=== PATIENT | female | born 1995 | race Caucasian/White ===

== ENCOUNTER 2019-06-22 16:11 | Emergency (ER) | payer OTHER ==
[~2019-06-22] VITALS: Ht 165.1 cm; Wt 82.6 kg
[~2019-06-22 16:11] MED LIST: CEFU500T46 PO; NORG1TAB6 PO; PHEN37.53 PO
[2019-06-22] MEDS ORDERED: LIDO:MAALOX 1:1 20 ML SINGLE DOSE. PO ONE (17:30)
[2019-06-22 17:57] LABS: BASO # 0.1 x10^3/uL (0.0-0.2); BASO % 1 % (0-3); EOS # 0.1 x10^3/uL (0.0-0.7); EOS % 1 % (0-3); HEMATOCRIT 42.1 % (36.0-47.0); LYMPH # 2.7 x10^3/uL (1.0-4.8); LYMPH % 27 % (24-48); MEAN CORPUSCULAR HEMOGLOBIN 30 pg (25-35); MEAN CORPUSCULAR HGB CONC 33 g/dL (31-37); MEAN CORPUSCULAR VOLUME 90 fL (79-100); MONO # 0.6 x10^3/uL (0.0-1.1); MONO % 6 % (0-9); NEUT # 6.6 x10^3uL (1.8-7.7); NEUT % 65 % (31-73); PLATELET COUNT 318 x10^3/uL (140-400); RED BLOOD COUNT 4.69 x10^6/uL (3.50-5.40); RED CELL DISTRIBUTION WIDTH 12.6 % (11.5-14.5); WHITE BLOOD COUNT 10.1 x10^3/uL (4.0-11.0)
[2019-06-22 18:00] LABS: CALCIUM 9.3 mg/dL (8.5-10.1); CREATININE 0.7 mg/dL (0.6-1.0); GFR 102.8; POTASSIUM 4.1 mmol/L (3.5-5.1)
[2019-06-22 18:04] LABS: BACTERIA,URINE 0 /HPF (0-FEW); BILIRUBIN,URINE NEG (NEG); CLARITY,URINE HAZY; COLOR,URINE STRAW; GLUCOSE,URINE NEG (NEG); NITRITE,URINE NEG (NEG); RBC,URINE 0 /HPF (0-2); SQUAMOUS EPITHELIAL CELL,UR FEW /LPF; UROBILINOGEN,URINE 0.2 mg/dL (0.2 mg/dL); WBC,URINE 0 /HPF (0-4)
[2019-06-22 18:06] LABS: ALBUMIN 4.2 g/dL (3.4-5.0); ALBUMIN/GLOBULIN RATIO 1.2 (1.0-1.7); TOTAL BILIRUBIN 0.4 mg/dL (0.2-1.0); TOTAL PROTEIN 7.7 g/dL (6.4-8.2)
[2019-06-22 18:28] VITALS: BP 121/69
--- NOTE | 2019-06-22 18:30 | PHYS DOC ---
Past History Past Medical History: No Pertinent History Past Surgical History: Appendectomy Alcohol Use: Occasionally Drug Use: None Adult General Chief Complaint Chief Complaint: ABDOMINAL PAIN HPI HPI Patient is a 23-year-old female with 2 weeks of left upper quadrant burning pain worse with eating positive nausea no vomiting she was feeling it more in her back she was worried about that she is on Nexium is not really helping her that much. She has had her appendix removed no chest pain or shortness of breath no other symptoms no fever. Symptoms are moderate she is very worried about her pancreas. Review of Systems Review of Systems Constitutional: Denies fever or chills [] Eyes: Denies change in visual acuity, redness, or eye pain [] HENT: Denies nasal congestion or sore throat [] Musculoskeletal: Integument: Denies rash or skin lesions [] Neurologic: Denies headache, focal weakness or sensory changes [] Endocrine: Denies polyuria or polydipsia [] All other systems were reviewed and found to be within normal limits, except as documented in this note. Current Medications Current Medications Current Medications Medications (Trade) Dose Ordered Sig/Alphonse Start Time Stop Time Status Last Admin Dose Admin Multi-Ingredient Mouthwash/Gargle (Gi Cocktail) 20 ml 1X ONCE 06/22/19 17:30 06/22/19 17:31 DC 06/22/19 17:30 20 ML Allergies Allergies Allergies Coded Allergies Type Severity Reaction Last Updated Verified No Known Drug Allergies 02/27/14 No Physical Exam Physical Exam Constitutional: Well developed, well nourished, no acute distress, non-toxic appearance. [] HENT: Normocephalic, atraumatic, bilateral external ears normal, oropharynx moist, no oral exudates, nose normal. [] Eyes: PERRLA, EOMI, conjunctiva normal, no discharge. [] Neck: Normal range of motion, no tenderness, supple, no stridor. [] Cardiovascular:Heart rate regular rhythm, no murmur [] Lungs & Thorax: Bilateral breath sounds clear to auscultation [] Abdomen: Bowel sounds normal, soft, no tenderness, no masses, no pulsatile masses. [] Skin: Warm, dry, no erythema, no rash. [] Back: No tenderness, no CVA tenderness. [] Extremities: No tenderness, no cyanosis, no clubbing, ROM intact, no edema. [] Neurologic: Alert and oriented X 3, normal motor function, normal sensory function, no focal deficits noted. [] Psychologic: Affect normal, judgement normal, mood normal. [] Current Patient Data Vital Signs Vital Signs Date Time Temp Pulse Resp B/P (MAP) Pulse Ox O2 Delivery O2 Flow Rate FiO2 06/22/19 16:20 98.3 112 16 100 Room Air Lab Results Laboratory Tests Test 06/22/19 17:30 06/22/19 17:39 White Blood Count 10.1 x10^3/uL (4.0-11.0) Red Blood Count 4.69 x10^6/uL (3.50-5.40) Hemoglobin 14.0 g/dL (12.0-15.5) Hematocrit 42.1 % (36.0-47.0) Mean Corpuscular Volume 90 fL (79-100) Mean Corpuscular Hemoglobin 30 pg (25-35) Mean Corpuscular Hemoglobin Concent 33 g/dL (31-37) Red Cell Distribution Width 12.6 % (11.5-14.5) Platelet Count 318 x10^3/uL (140-400) Neutrophils (%) (Auto) 65 % (31-73) Lymphocytes (%) (Auto) 27 % (24-48) Monocytes (%) (Auto) 6 % (0-9) Eosinophils (%) (Auto) 1 % (0-3) Basophils (%) (Auto) 1 % (0-3) Neutrophils # (Auto) 6.6 x10^3uL (1.8-7.7) Lymphocytes # (Auto) 2.7 x10^3/uL (1.0-4.8) Monocytes # (Auto) 0.6 x10^3/uL (0.0-1.1) Eosinophils # (Auto) 0.1 x10^3/uL (0.0-0.7) Basophils # (Auto) 0.1 x10^3/uL (0.0-0.2) Urine Collection Type Unknown Urine Color Straw Urine Clarity Hazy Urine pH 6.0 Urine Specific [place] 1.010 Urine Protein Neg (NEG-TRACE) Urine Glucose (UA) Neg mg/dL (NEG) Urine Ketones (Stick) Neg mg/dL (NEG) Urine Blood Neg (NEG) Urine Nitrite Neg (NEG) Urine Bilirubin Neg (NEG) Urine Urobilinogen Dipstick 0.2 mg/dL (0.2 mg/dL) Urine Leukocyte Esterase Neg (NEG) Urine RBC 0 /HPF (0-2) Urine WBC 0 /HPF (0-4) Urine Squamous Epithelial Cells Few /LPF Urine Bacteria 0 /HPF (0-FEW) Sodium Level 140 mmol/L (136-145) Potassium Level 4.1 mmol/L (3.5-5.1) Chloride Level 102 mmol/L (98-107) Carbon Dioxide Level 28 mmol/L (21-32) Anion Gap 10 (6-14) Blood Urea Nitrogen 12 mg/dL (7-20) Creatinine 0.7 mg/dL (0.6-1.0) Estimated GFR (Cockcroft-Gault) 102.8 BUN/Creatinine Ratio 17 (6-20) Glucose Level 88 mg/dL (70-99) Calcium Level 9.3 mg/dL (8.5-10.1) Total Bilirubin 0.4 mg/dL (0.2-1.0) Aspartate Amino Transferase (AST) 16 U/L (15-37) Alanine Aminotransferase (ALT) 22 U/L (14-59) Alkaline Phosphatase 60 U/L (46-116) Total Protein 7.7 g/dL (6.4-8.2) Albumin 4.2 g/dL (3.4-5.0) Albumin/Globulin Ratio 1.2 (1.0-1.7) Lipase 58 U/L (73-393) L POC Urine HCG, Qualitative hcg negative (Negative) EKG EKG [] Radiology/Procedures Radiology/Procedures [] Course & Med Decision Making Course & Med Decision Making Pertinent Labs and Imaging studies reviewed. (See chart for details) []This is a well-appearing 23-year-old female with a nontender abdomen presenting with 2 weeks of left upper quadrant burning pain with normal lab work. She was very concerned highly concerned about several issues I did review her lab work with her she has essentially normal labs no hematuria no pyuria normal pancreas level normal LFTs normal white blood cell count and really don't think that she needs CT imaging at talked her about the risks and benefits of the CT including the risk of radiation in a young female we agreed that that would not be the right course of action I recommended follow-up with primary care doctor for GI referral should the symptoms persist. Return precautions discussed and she voiced understanding Otto Disclaimer Otto Disclaimer This electronic medical record was generated, in whole or in part, using a voice recognition dictation system. Departure Departure: Impression: Primary Impression: Abdominal pain Disposition: HOME, SELF-CARE Condition: STABLE Patient Instructions: Abdominal Pain (Nonspecific) Additional Instructions: please take pepcid with your nexium and also follow up with your primary provider for further testing or follow up as needed ALISE KENYON MD Jun 22, 2019 18:30
== END 2019-06-22 18:32 | disposition home or self-care (01) ==
LOC: ER 16:11
DX: R10.12 Left upper quadrant pain (principal); R11.0 Nausea; Z90.49 Acquired absence of other specified parts of digestive tract
CPT/HCPCS: 36415; 80053; 81001; 81025; 83690; 85025; 99284

== ENCOUNTER → 2019-08-08 | Outpatient (CLI) | payer OTHER ==
[~2019-08-08] VITALS: Ht 154.9 cm; Wt 77.1 kg
[~2019-08-08] MED LIST changes: +SINCALIDE 1.54 MCG in IV NORMAL SALINE 50ML 30 ML IV ONE
--- NOTE | 2019-08-08 08:59 | RAD ---
Examination: Ultrasound abdomen limited HISTORY: History of right upper quadrant abdominal pain COMPARISON: None available FINDINGS: The liver length measures 14.6 cm. The common bile duct measures 2.4 mm in diameter. The gallbladder wall thickness measures 1.3 mm. The right kidney measures 10 cm in length. Limited visualization of the right kidney due to bowel gas. The visualized pancreas grossly appears unremarkable. Visualized IVC is within normal limits of dimension. IMPRESSION: Unremarkable visualized exam. Electronically signed by: Kenny Lopez MD (08/08/2019 8:57 AM) [id number]
--- NOTE | 2019-08-08 11:30 | RAD ---
HEPATOBILIARY SCAN WITH EJECTION FRACTION History: Abdominal pain x4 months, nausea. Comparison: Limited abdominal ultrasound, same day. Procedure: Serial static images are obtained of the liver and biliary system in the frontal projection following IV administration of 5.3 mCi of Technetium 99m Choletec. After filling of the gallbladder, 1.5 mcg of sincalide were infused over 30 minutes and dynamic imaging continued over this period. The gallbladder ejection fraction was calculated. Findings: There is prompt hepatic clearance of tracer from the blood pool. There is homogeneous distribution throughout the liver. There is normal filling of the gallbladder and normal emptying into the biliary system and small bowel. The gallbladder ejection fraction measures 77% (normal gallbladder EF is 35% or greater). IMPRESSION: 1. The cystic duct and common bile duct are patent. Negative for acute cholecystitis. 2. The gallbladder ejection fraction is normal. Electronically signed by: Kendall Jimenez MD (08/08/2019 11:27 AM) [id number]
== END | disposition home or self-care (01) ==
LOC: US 08:19
PROVIDERS: ATTEND Internal Medicine Gastroenterology
DX: K76.89 Other specified diseases of liver (principal); R10.11 Right upper quadrant pain
CPT/HCPCS: 76705; 78227; A9537; J2805

== ENCOUNTER → 2019-10-21 | Outpatient (CLI) | payer OTHER ==
[~2019-10-21] MED LIST changes: -SINCALIDE 1.54 MCG in IV NORMAL SALINE 50ML 30 ML IV ONE
--- NOTE | 2019-10-21 13:13 | RAD ---
EXAM: Nuclear gastric emptying scan. HISTORY: Nausea. Pain. COMPARISON: None. TECHNIQUE: Serial static images were obtained over the stomach following oral administration of 2.0 mCi of 99m-Tc sulfur colloid. FINDINGS: The stomach empties into the small bowel without evidence of reflux in the area of the esophagus. The estimated time for half emptying of gastric contents, i.e. 'gastric emptying time' is 74 minutes (normal is 66 +/- 22 minutes). There is 57 percent retained tracer activity within the stomach at one hour, 33 percent retained tracer activity within stomach at 2 hours, 20 percent retained tracer activity within the stomach at 3 hours and 1 percent retained tracer activity within the stomach at 4 hours. IMPRESSION: Normal gastric emptying scan. Electronically signed by: Hanny Fried MD (10/21/2019 1:10 PM) [id number]
== END ==
LOC: NM 08:31
PROVIDERS: ATTEND Internal Medicine Gastroenterology
DX: R11.0 Nausea (principal); R10.9 Unspecified abdominal pain
CPT/HCPCS: 78264; A9541